=== PATIENT | male | born 1940 ===

== ENCOUNTER 2017-06-06 07:02 | Outpatient (CLI) | payer OTHER | END 2017-06-06 07:13 | disposition home or self-care (01) | LOC: RAD 07:02 | DX: R10.9 Unspecified abdominal pain (principal) ==

== ENCOUNTER 2018-06-14 07:14 | Outpatient (CLI) | payer OTHER | END 2018-06-14 07:27 | disposition home or self-care (01) | LOC: LAB 07:14 | DX: D68.8 Other specified coagulation defects (principal); I10 Essential (primary) hypertension; R07.89 Other chest pain ==

== ENCOUNTER 2019-11-14 11:09 | Outpatient (CLI) | payer OTHER | END 2019-11-14 11:14 | disposition home or self-care (01) | LOC: RAD 11:09 | PROVIDERS: ATTEND Internal Medicine Cardiovascular Disease | DX: J44.9 Chronic obstructive pulmonary disease, unspecified (principal) ==